=== PATIENT | male | born 1950 | race Two or more races ===

== ENCOUNTER 2024-05-30 11:08 | Emergency (ER) | payer OTHER ==
[~2024-05-30] VITALS: Ht 177.8 cm; Wt 81.6 kg
[2024-05-30] MEDS ORDERED: COZAAR50 MG PO (11:40)
[2024-05-30] MEDS ORDERED: TRULICITY0.75 MG/0. SQ (11:40)
[2024-05-30 11:41] VITALS: BP 145/83; O2SAT 95
[2024-05-30] MEDS ORDERED: GLIMEPIRIDE2 M1 PO (11:41)
[2024-05-30] MEDS ORDERED: KETOROLAC TROMETHAMINE 60 MG VIAL IM ONE ×2 (15:10→15:15)
[2024-05-30] MEDS ORDERED: ANALPRAM HC 2.530 GM RECTAL (15:23)
== END 2024-05-30 17:25 | disposition home or self-care (01) ==
LOC: ER 11:10
DX: K64.9 Unspecified hemorrhoids (principal); I10 Essential (primary) hypertension; E11.9 Type 2 diabetes mellitus without complications
CPT/HCPCS: 96372; 99282; J1885

== ENCOUNTER 2024-09-13 12:15 | Inpatient (IN) | payer OTHER ==
[~2024-09-13] VITALS: Ht 177.8 cm; Wt 81.6 kg
[~2024-09-13 12:15] MED LIST: ANALPRAM HC 2.530 GM RECTAL; COZAAR50 MG PO; GLIMEPIRIDE2 M1 PO; TRULICITY0.75 MG/0. SQ
[2024-09-13] MEDS ORDERED: SOLIQUA 100 UNIT3 ML (14:50)
[2024-09-13 14:51] VITALS: BP 140/81
[2024-09-13] MEDS ORDERED: SYNJARDY 12.5-1 EACH PO (14:51)
[2024-09-13 14:55] LABS: COVID-19 AG NEGATIVE (NEGATIVE)
[2024-09-13 15:51] LABS: RH NEGATIVE
[2024-09-19] MEDS ORDERED: LIDOCAINE HCL 1%/EPINEPHRINE 20ML VIAL IJ ONE (06:58)
[2024-09-19] MEDS ORDERED: BUPIVACAINE HCL/MPF 0.5% 30ML VIAL ONE (06:58)
[2024-09-19] MEDS ORDERED: POVIDONE-IODINE 118 ML BOTT TOP ONE (06:59)
[2024-09-19] MEDS ORDERED: VANCOMYCIN HCL 1,000 MG VIAL ONE (07:05)
[2024-09-19] MEDS ORDERED: CEFAZOLIN SODIUM 1,000 MG VIAL ONE (07:06)
[2024-09-19] MEDS ORDERED: TRANEXAMIC ACID 100MG/1ML (1000MG) AMPUL IV ONE ×2 (07:06→07:13)
[2024-09-19] MEDS ORDERED: INSULIN REGULAR, HUMAN 1,000 UNIT/10 ML UNITS ONE (07:55)
[2024-09-19] MEDS ORDERED: KETOROLAC TROMETHAMINE 60 MG VIAL IM ONE (08:21)
[2024-09-19] MEDS ORDERED: SODIUM CHLORIDE 0.45 % 1,000 ML IV SCH (10:30)
[2024-09-19] MEDS ORDERED: OxyCODONE HCL 5 MG TABLET (ROXICODONE) PO PRN (10:30)
[2024-09-19] MEDS ORDERED: ONDANSETRON HCL 2 MG/ML VIAL IV PRN (10:30)
[2024-09-19] MEDS ORDERED: MORPHINE SULFATE 4 MG/ML CARTRIDGE IV PRN (10:30)
[2024-09-19] MEDS ORDERED: ACETAMINOPHEN 500 MG GEL..CAP PO SCH (12:00)
[2024-09-19 14:00] VITALS: BP 128/77; O2SAT 95
[2024-09-19] MEDS ORDERED: ENALAPRILAT DIHYDRATE 1.25 MG/ML VIAL IV PRN (14:00)
[2024-09-19] MEDS ORDERED: INSULIN LISPRO 1,000 UNIT/10 ML UNITS SUBCUTANEO PRN (14:00)
[2024-09-19] MEDS ORDERED: DEXTROSE 50 % IN WATER 0.5 G/ML VIAL IV PRN (14:00)
[2024-09-19 16:38] VITALS: BP 115/71; O2SAT 95
[2024-09-19] MEDS ORDERED: CEFAZOLIN SODIUM 1,000 MG VIAL IV SCH (17:00)
[2024-09-19] MEDS ORDERED: GABAPENTIN 300 MG CAPSULE PO SCH (17:00)
[2024-09-20 00:20] VITALS: BP 118/76; O2SAT 89
[2024-09-20 05:13] LABS: HEMATOCRIT 35.5 % (39.0-48.0); HEMOGLOBIN 12.3 g/dL (13-16.00); MEAN CELL VOLUME 91.4 fL (80.0-100.00); MEAN CORPUSCULAR HEMOGLOBIN 31.5 pg (27.00-32.0); MEAN CORPUSCULAR HGB CONC 34.5 g/dl (32.0-36.0); PLATELET COUNT 226 K/uL (150-450); RED BLOOD COUNT 3.89 M/uL (4.00-6.00); RED CELL DISTRIBUTION WIDTH 14.7 % (11.5-14.5)
[2024-09-20] MEDS ORDERED: PERCOCET 5-3251 EACH PO (07:33)
[2024-09-20] MEDS ORDERED: DUI500 PO (07:33)
[2024-09-20] MEDS ORDERED: ELIQUIS2.5 MG PO (07:33)
[2024-09-20 08:00] VITALS: BP 137/80; O2SAT 94
[2024-09-20] MEDS ORDERED: SENNOSIDES 1 TAB TABLET PO SCH (09:00)
[2024-09-20] MEDS ORDERED: APIXABAN 2.5 MG TABLET PO SCH (09:00)
[2024-09-20] MEDS ORDERED: LOSARTAN POTASSIUM 50 MG TABLET PO SCH (09:00)
[2024-09-20 12:21] LABS: BILIRUBIN TOTAL 0.77 mg/dL (0.3-1.2); CALCIUM 8.8 mg/dL (8.5-10.1); CREATININE SERUM 0.63 mg/dL (0.70-1.30); GFR 124.83; POTASSIUM 4.13 mEq/L (3.5-5.1)
[2024-09-20 12:35] LABS: COVID-19 AG NEGATIVE (NEGATIVE)
[2024-09-20 17:57] VITALS: BP 113/70; O2SAT 95
[2024-09-21 00:40] VITALS: BP 123/75
[2024-09-21 06:14] LABS: HEMOGLOBIN 12.2 g/dL (13-16.00); MEAN CELL VOLUME 90.4 fL (80.0-100.00); MEAN CORPUSCULAR HEMOGLOBIN 31.4 pg (27.00-32.0); MEAN CORPUSCULAR HGB CONC 34.7 g/dl (32.0-36.0); PLATELET COUNT 230 K/uL (150-450); RED BLOOD COUNT 3.87 M/uL (4.00-6.00); RED CELL DISTRIBUTION WIDTH 14.7 % (11.5-14.5)
[2024-09-21] MEDS ORDERED: IRON FUM,PS/FOLIC ACID/VITC/B3 1 CAP CAPSULE PO SCH (09:00)
[2024-09-21 09:46] VITALS: BP 116/80; O2SAT 98
[2024-09-21 16:00] VITALS: BP 110/70; O2SAT 96
== END 2024-09-21 21:59 | DRG 470 ==
LOC: O/R 09-19 05:10 → SURG 09-19 05:10
PROVIDERS: ADMIT Orthopaedic Surgery; ATTEND Orthopaedic Surgery
PROC: 0SUD07Z Supplement Left Knee Joint with Autologous Tissue Substitute, Open Approach (ICD-10-PCS; 2024-09-19)
PROC: 0SRD0J9 Replacement of Left Knee Joint with Synthetic Substitute, Cemented, Open Approach (ICD-10-PCS; principal; 2024-09-19 17:30)
DX: M17.12 Unilateral primary osteoarthritis, left knee (principal); M22.12 Recurrent subluxation of patella, left knee; M81.0 Age-related osteoporosis without current pathological fracture; I10 Essential (primary) hypertension; E11.9 Type 2 diabetes mellitus without complications; Z79.84 Long term (current) use of oral hypoglycemic drugs; Z79.4 Long term (current) use of insulin